=== PATIENT | male | born 1980 | race African-American/Black ===

== ENCOUNTER 2025-01-08 14:16 | Emergency (ER) | payer OTHER, SELFPAY ==
[~2025-01-08] VITALS: Ht 170.2 cm; Wt 66.9 kg
[2025-01-08] MEDS ORDERED: TRAZ-228 PO (15:31)
--- NOTE | 2025-01-08 15:32 | ED.PDOC ---
HPI (NEURO) HPI Comments 44-year-old male who presents to ED chief complaint of insomnia. Patient speaks Mandarin Lithuanian and use of an aerial photograph interpreter with the ID #[id number] was used for translation help of the voice certified massage therapist system. Patient states that he has been having insomnia for long time patient states that he has been taking multiple sleeping pills but states they have not been helping. Patient presented three sleeping pills with Lithuanian lettering unable to be identified at during visit. Patient states that he has been getting less sleep with 6 to 7 hours daily. Patient otherwise denies any associated symptoms. Patient otherwise has stable vitals in the ED the patient denies any other symptoms at this time. Chief Complaint: General Weakness Time Seen by MD: 14:53 Reviewed Notes: Nurses Notes, Medications Information Source: Patient Mode of Arrival: Ambulatory Past Medical History PAST MEDICAL HISTORY: Denies Surgical History: Denies all surgeries Family History Family History: Reviewed,noncontributory to illness Social History Smoker: Non-Smoker Alcohol: Denies ETOH Use Drugs: Denies Drug Use Lives In: Home All Other Systems: Reviewed and Negative (See HPI) Physical Exam General Appearance: No Apparent Distress, Normal HEENT: Normal ENT Inspection, Pharynx Normal, TMs Normal Neck: Full Range of Motion, Non-Tender, Normal, Normal Inspection Respiratory: Chest Non-Tender, Lungs Clear, No Accessory Muscle Use, No Respiratory Distress, Normal Breath Sounds Cardiovascular: No Edema, No JVD, No Murmur, No Gallop, Normal Peripheral Pulses, Regular Rate/Rhythm Breast Exam: Deferred Gastrointestinal: No Organomegaly, Non Tender, No Pulsatile Mass, Normal Bowel Sounds, Soft Genitalia: Deferred Pelvic: Deferred Rectal: Deferred Extremities: No calf tenderness, Normal capillary refill, Normal inspection, Normal range of motion, Non-tender, No pedal edema Musculoskeletal : Apperance: Normal Neurologic: Alert, cutter machine II-XII nml as Tested, No Motor Deficits, Normal Affect, Normal Mood, No Sensory Deficits Cerebellar Function: Normal Reflexes: Normal Skin: Dry, Normal Color, Warm Lymphatic: No Adenopathy Was a procedure done? Was a procedure done?: No Differential Diagnosis (SZ) General Weakness: Anemia, Dehydration, Electrolyte imbalance, Other (Insomnia) X-Ray, Labs, Meds, VS Vital Signs Date Time Temp Pulse Resp B/P (MAP) Pulse Ox O2 Delivery O2 Flow Rate FiO2 01/08/25 14:20 97.7 78 13 114/71 96 97.7 X-Ray, Labs, Meds, VS Comment 44-year-old male who presents to ED chief complaint of insomnia. Patient arrives alert and oriented, ABC's intact, afebrile, vital signs stable, saturating well in room air Labs in the ED showed (pertinent+ and then pertinent-) Patient was given:_. Tolerated medications with no adverse reaction. Additional MDM Review of External, Non-ED records: External records reviewed. Discussion with independent historian (EMS, family) history obtained from the patient/parents (if applicable) at bedside Chronic conditions affecting care: None Social determinants of health affecting care: None Consideration of admission (observation or admission): I considered escalation of care to admission for this patient, however given the reassuring workup, the patient is safe for outpatient management. Discussion with the Radiology: No Tests considered but not performed: Prescription medication considered but not given: 12 lead EKG interpretation: Patient Education/Counseling: Diagnosis, Treatment Family Education/Counseling: No Family Present Departure 1 Departure Time of Disposition: 15:32 Impression: Primary Impression: Insomnia Qualified Codes: G47.00 - Insomnia, unspecified Disposition: HOME / SELF CARE / HOMELESS Condition: Stable e-Prescriptions Trazodone Hcl (Trazodone Hcl) 100 Mg Tab 1 TAB PO QPM for 30 Days, #30 TAB 0 Refills Prov: JOSEFINA ANDRADE NP 01/08/25 Discharged With: Self Critical Care Note Critical Care Time?: No Stability Stability form required: No Heart Score Heart Score: Heart Score Response (Comments) Value History N/A 0 EKG N/A 0 Age N/A 0 Risk Factors N/A 0 Troponin N/A 0 Total 0 I personally scribed for JOSEFINA ANDRADE NP (KAY) on 01/08/25 at 15:43. Electronically submitted by Haley Barton ([employer] I personally scribed for JOSEFINA ANDRADE NP (KAY) on 01/08/25 at 15:55. Electronically submitted by Haley Barton ([employer]). JOSEFINA ANDRADE NP Jan 08, 2025 15:32
[2025-01-08 15:58] VITALS: BP 118/74; PULSE 72; RESP 16; TEMP 97.9; O2SAT 96
== END 2025-01-08 16:00 | disposition home or self-care (01) ==
LOC: ER 14:16
DX: G47.00 Insomnia, unspecified (principal); Z79.899 Other long term (current) drug therapy

== ENCOUNTER 2025-03-19 11:39 | Emergency (ER) | payer SELFPAY ==
[~2025-03-19] VITALS: Ht 165.1 cm; Wt 63.8 kg
[~2025-03-19 11:39] MED LIST: TRAZ-228 PO
[2025-03-19 13:00] VITALS: BP 120/86; PULSE 88; RESP 20; TEMP 97.9; O2SAT 97
--- NOTE | 2025-03-19 13:05 | ED.PDOC ---
Psychiatric HPI Comments Pleasant 44-year-old male presents for medication refill. No other complaint or concern Chief Complaint: Mental Health Time Seen by MD: 11:52 Mode of Arrival: Ambulatory Past Medical History PAST MEDICAL HISTORY: Denies Surgical History: Denies all surgeries Family History Family History: Reviewed,noncontributory to illness Social History Smoker: Non-Smoker Alcohol: Denies ETOH Use Drugs: Denies Drug Use Lives In: Home Physical Exam General Appearance: No Apparent Distress, Normal HEENT: Normal ENT Inspection, Pharynx Normal, TMs Normal Neck: Full Range of Motion, Non-Tender, Normal, Normal Inspection Respiratory: Chest Non-Tender, Lungs Clear, No Accessory Muscle Use, No Respiratory Distress, Normal Breath Sounds Cardiovascular: No Edema, No JVD, No Murmur, No Gallop, Normal Peripheral Pulses, Regular Rate/Rhythm Breast Exam: Deferred Gastrointestinal: No Organomegaly, Non Tender, No Pulsatile Mass, Normal Bowel Sounds, Soft Genitalia: Deferred Pelvic: Deferred Rectal: Deferred Extremities: No calf tenderness, Normal capillary refill, Normal inspection, Normal range of motion, Non-tender, No pedal edema Musculoskeletal : Apperance: Normal Neurologic: Alert, retail store associate II-XII nml as Tested, No Motor Deficits, Normal Affect, Normal Mood, No Sensory Deficits Cerebellar Function: Normal Reflexes: Normal Skin: Dry, Normal Color, Warm Lymphatic: No Adenopathy Was a procedure done? Was a procedure done?: No Psych Differential Dx Psych. Differential Dx: Other X-Ray, Labs, Meds, VS Vital Signs Date Time Temp Pulse Resp B/P (MAP) Pulse Ox O2 Delivery O2 Flow Rate FiO2 03/19/25 13:00 97.9 88 20 120/86 (97) 97 97.9 03/19/25 13:00 88 20 97 Room Air 03/19/25 11:40 97.8 82 20 18/124 98 97.8 X-Ray, Labs, Meds, VS Comment presents with recent onset of difficulty sleeping Well-appearing initially hypertensive repeat within normal limits, no signs of distress nontoxic Does not appear to have acute manic episode. History not suggestive of obstructive sleep apnea. Does not use stimulants. To the best of my knowledge no emergent or life threatening cause exists as the source of their symptoms Discussed sleep hygiene, melatonin as needed, will give short-term prescription for Ambien. Follow-up with PCP in 1 week and consider referral to sleep clinic if symptoms persist. Knows to return for worsening symptoms, fever, chills, headache, SI, HI, chest pain, sob or any other concerns Time of 1ST Reevaluation: 13:00 Reevaluation 1ST: Improved Patient Education/Counseling: Diagnosis, Treatment Family Education/Counseling: Diagnosis, Treatment Departure 1 Departure Time of Disposition: 13:04 Impression: Primary Impression: Insomnia Qualified Codes: G47.00 - Insomnia, unspecified Disposition: HOME / SELF CARE / HOMELESS Condition: Fair Additional Instructions: Discharge Note: Continue on your medications. Do not drive when taking narcotics. Drink plenty of fluids. Follow up with your primary Dr. Take your prescriptions as ordered. If your condition becomes worse call and follow up with your primary Dr. for instructions or return to the ER if needed. Thank you for visiting [facility]. e-Prescriptions Trazodone Hcl (Trazodone Hcl) 100 Mg Tab 1 TAB PO QPM for 30 Days, #30 TAB 0 Refills Prov: JOSEFINA ANDRADE NP 03/19/25 Critical Care Note Critical Care Time?: No Stability Stability form required: No Heart Score Heart Score: Heart Score Response (Comments) Value History N/A 0 EKG N/A 0 Age N/A 0 Risk Factors N/A 0 Troponin N/A 0 Total 0 JOSEFINA ANDRADE NP Mar 19, 2025 13:05
--- NOTE | 2025-03-19 13:08 | ED.PDOC ---
History of Present Illness HPI Comments 44-year-old male that presents to the ED here complaint of mental health. Patient states he has having insomnia and states he needs a stronger medication for sleep. Patient was previously prescribed medication for insomnia but states it is not helping. Patient otherwise denies any other symptoms or complaints Chief Complaint: Mental Health Time Seen by MD: 13:07 Reviewed Notes: Medications, Allergies Allergies: Coded Allergies: NO KNOWN ALLERGIES (Unverified , 01/08/25) Home Meds Active Scripts Trazodone Hcl (Trazodone Hcl) 100 Mg Tab, 1 TAB PO QPM for 30 Days, #30 TAB 0 Refills Prov:JOSEFINA ANDRADE Edwina CHIEF CLINICAL DIETITIAN 03/19/25 Information Source: Patient Mode of Arrival: Ambulatory Past Medical History PAST MEDICAL HISTORY: Denies Surgical History: Denies all surgeries Family History Family History: Reviewed,noncontributory to illness Social History Smoker: Non-Smoker Alcohol: Denies ETOH Use Drugs: Denies Drug Use Lives In: Home Constitutional: denies: chills, diaphoresis, fatigue, fever, malaise, sweats, weakness, others EENTM: denies: blurred vision, double vision, ear bleeding, ear discharge, ear drainage, ear pain, ear ringing, eye pain, eye redness, hearing loss, mouth pain, mouth swelling, nasal discharge, nose bleeding, nose congestion, nose pain, photophobia, tearing, throat pain, throat swelling, voice changes, others Respiratory: denies: cough, hemoptysis, orthopnea, SOB at rest, shortness of breath, SOB with excertion, stridor, wheezing, others Cardiovascular: denies: chest pain, dizzy spells, diaphoresis, Dyspnea on exertion, edema, irregular heart beat, left arm pain, lightheadedness, palpitations, PND, syncope, others Gastrointestinal: denies: abdomen distended, abdominal pain, blood streaked bowels, constipated, diarrhea, dysphagia, difficulty swallowing, hematemesis, melena, nausea, poor appetite, poor fluid intake, rectal bleeding, rectal pain, vomiting, others Genitourinary: denies: burning, dysuria, flank pain, frequency, hematuria, incontinence, penile discharge, penile sore, pain, testicle pain, testicle swelling, urgency, others Neurological: denies: dizziness, fainting, headache, left sided numbness, left sided weakness, numbness, paresthesia, pre-existing deficit, right sided numbness, right sided weakness, seizure, speech problems, tingling, tremors, weakness, others Musculoskeletal: denies: back pain, gout, joint pain, joint swelling, muscle pain, muscle stiffness, neck pain, others Integumetry: denies: bruises, change in color, change in hair/nails, dryness, laceration, lesions, lumps, rash, wounds, others Allergic/Immunocompromised: denies: Difficulty Healing, Frequent Infections, Hives, Itching, others Hematologic/Lymphatic: denies: anemia, blood clots, easy bleeding, easy bruising, swollen glands, others Endocrine: denies: excessive hunger, excessive sweating, excessive thirst, excessive urination, flushing, intolerance to cold, intolerance to heat, unexplained weight gain, unexplained weight loss, others Psychiatric: denies: anxiety, bipolar disorder, depression, hopeless, panic disorder, schizophrenia, sleepless, suicidal, others All Other Systems: Reviewed and Negative Physical Exam General Appearance: No Apparent Distress, Normal HEENT: Normal ENT Inspection, Pharynx Normal, TMs Normal Neck: Full Range of Motion, Non-Tender, Normal, Normal Inspection Respiratory: Chest Non-Tender, Lungs Clear, No Accessory Muscle Use, No Respiratory Distress, Normal Breath Sounds Cardiovascular: No Edema, No JVD, No Murmur, No Gallop, Normal Peripheral Pulses, Regular Rate/Rhythm Breast Exam: Deferred Gastrointestinal: No Organomegaly, Non Tender, No Pulsatile Mass, Normal Bowel Sounds, Soft Genitalia: Deferred Pelvic: Deferred Rectal: Deferred Extremities: No calf tenderness, Normal capillary refill, Normal inspection, Normal range of motion, Non-tender, No pedal edema Musculoskeletal : Apperance: Normal Neurologic: Alert, engineering illustrator II-XII nml as Tested, No Motor Deficits, Normal Affect, Normal Mood, No Sensory Deficits Cerebellar Function: Normal Reflexes: Normal Skin: Dry, Normal Color, Warm Lymphatic: No Adenopathy Was a procedure done? Was a procedure done?: No Differential Dx Considerations may include: Medication refill, insomnia, X-Ray, Labs, Meds, VS Vital Signs Date Time Temp Pulse Resp B/P (MAP) Pulse Ox O2 Delivery O2 Flow Rate FiO2 03/19/25 13:00 97.9 88 20 120/86 (97) 97 97.9 03/19/25 13:00 88 20 97 Room Air 03/19/25 11:40 97.8 82 20 18/124 98 97.8 X-Ray, Labs, Meds, VS Comment presents with recent onset of difficulty sleeping Well-appearing initially hypertensive repeat within normal limits, no signs of distress nontoxic Does not appear to have acute manic episode. History not suggestive of obstructive sleep apnea. Does not use stimulants. To the best of my knowledge no emergent or life threatening cause exists as the source of their symptoms Discussed sleep hygiene, melatonin as needed, will give short-term prescription for Ambien. Follow-up with PCP in 1 week and consider referral to sleep clinic if symptoms persist. Knows to return for worsening symptoms, fever, chills, headache, SI, HI, chest pain, sob or any other concerns Time of 1ST Reevaluation: 13:35 Reevaluation 1ST: Unchanged Patient Education/Counseling: Diagnosis, Treatment Family Education/Counseling: No Family Present SEPSIS Sepsis Screen Date sepsis recognized/suspect: Mar 19, 2025 Time Sepsis recognized/suspect: 1040 Recent Procedure: No On Antibiotic Therapy: No Respiratory Rate >20: No Heart Rate >90: No Temp<36 C (96.8 F) or >38.3 C: No SBP <90 or MAP <65 mmHG: No New Acute Mental Status Change: No Is the patient on CPAP, BIPAP,: No Vital Signs Date Time Temp Pulse Resp B/P (MAP) Pulse Ox O2 Delivery O2 Flow Rate FiO2 03/19/25 13:00 97.9 88 20 120/86 (97) 97 97.9 03/19/25 13:00 88 20 97 Room Air 03/19/25 11:40 97.8 82 20 18/124 98 97.8 Departure 1 Departure Time of Disposition: 11:45 Impression: Primary Impression: Insomnia Qualified Codes: G47.00 - Insomnia, unspecified Disposition: HOME / SELF CARE / HOMELESS Condition: Stable Additional Instructions: Discharge Note: Continue on your medications. Do not drive when taking narcotics. Drink plenty of fluids. Follow up with your primary Dr. Take your prescriptions as ordered. If your condition becomes worse call and follow up with your primary Dr. for instructions or return to the ER if needed. Thank you for visiting [facility]. e-Prescriptions Trazodone Hcl (Trazodone Hcl) 100 Mg Tab 1 TAB PO QPM for 30 Days, #30 TAB 0 Refills Prov: JOSEFINA ANDRADE NP 03/19/25 Discharged With: Self Critical Care Note Critical Care Time?: No Stability Stability form required: No Heart Score Heart Score: Heart Score Response (Comments) Value History N/A 0 EKG N/A 0 Age N/A 0 Risk Factors N/A 0 Troponin N/A 0 Total 0 I personally scribed for JOSEFINA ANDRADE NP ([email or web address]) on 03/19/25 at 13:08. Electronically submitted by Haley Barton ([email or web address]). JOSEFINA ANDRADE NP Mar 19, 2025 13:08
== END 2025-03-19 13:21 | disposition home or self-care (01) ==
LOC: ER 11:45
DX: G47.00 Insomnia, unspecified (principal)

== ENCOUNTER 2025-04-19 19:45 | Emergency (ER) | payer SELFPAY ==
[~2025-04-19] VITALS: Ht 165.1 cm; Wt 63.1 kg
--- NOTE | 2025-04-19 21:24 | ED.PDOC ---
Psychiatric HPI Comments PT PRESENTED TO ED FOR INSOMNIA X1 DAY. PT DENIED ANY OTHTER S/S. GCS-15, ALL VSS Chief Complaint: Medical Clearance Time Seen by MD: 19:52 Reviewed Notes: Nurses Notes, Medications, Allergies Information Source: Patient Mode of Arrival: Ambulatory Past Medical History PAST MEDICAL HISTORY: Denies Surgical History: Denies all surgeries Family History Family History: Reviewed,noncontributory to illness Social History Smoker: Non-Smoker Alcohol: Denies ETOH Use Drugs: Denies Drug Use Lives In: Home All Other Systems: Reviewed and Negative (see hpi) Physical Exam General Appearance: No Apparent Distress, Normal HEENT: Pharynx Normal Neck: Full Range of Motion, Non-Tender Respiratory: Lungs Clear, No Respiratory Distress, Normal Breath Sounds Cardiovascular: No Edema, No JVD, No Murmur, No Gallop, Normal Peripheral Pulses, Regular Rate/Rhythm Breast Exam: Deferred Gastrointestinal: Non Tender, Soft Genitalia: Deferred Pelvic: Deferred Rectal: Deferred Extremities: Normal range of motion Musculoskeletal : Apperance: Normal Neurologic: Alert, No Motor Deficits, Normal Affect, Normal Mood, No Sensory Deficits Cerebellar Function: Normal Reflexes: NOT DONE Skin: Dry, Normal Color, Warm Lymphatic: No Adenopathy Was a procedure done? Was a procedure done?: No Psych Differential Dx Psych. Differential Dx: Anxiety, Sleepless OD Differential Dx: Depression X-Ray, Labs, Meds, VS Vital Signs Date Time Temp Pulse Resp B/P (MAP) Pulse Ox O2 Delivery O2 Flow Rate FiO2 04/19/25 21:40 68 18 95 Room Air 04/19/25 21:40 98.8 68 18 113/61 (78) 95 98.8 04/19/25 19:47 97.1 71 16 132/77 99 97.1 X-Ray, Labs, Meds, VS Comment Basis trazodone refilled as prescribed. Advised to take medication as prescribed side effects discussed. Advised to follow up with his PCP for further refills. ER return precautions given patient indicates understanding agrees with discharge plan of care. Time of 1ST Reevaluation: 19:52 Reevaluation 1ST: Unchanged Time of 2ND Reevaluation: 21:25 Reevaluation 2ND: Improved Patient Education/Counseling: Diagnosis, Treatment, Need For Follow Up Family Education/Counseling: No Family Present Departure 1 Departure Time of Disposition: 21:25 Impression: Primary Impression: Insomnia Qualified Codes: F51.01 - Primary insomnia Disposition: HOME / SELF CARE / HOMELESS Condition: Stable e-Prescriptions Trazodone Hcl (Trazodone Hcl) 100 Mg Tab 1 TAB PO QPM for 20 Days, #20 TAB Prov: JARROD PETERS 04/19/25 Discharged With: Self Critical Care Note Critical Care Time?: No Stability Stability form required: No JARROD PETERS Apr 19, 2025 21:24
[2025-04-19] MEDS ORDERED: TRAZ-228 PO (21:27)
[2025-04-19 21:40] VITALS: BP 113/61; PULSE 68; RESP 18; TEMP 98.8; O2SAT 95
== END 2025-04-19 21:40 | disposition home or self-care (01) ==
LOC: ER 19:45
DX: G47.00 Insomnia, unspecified (principal)

== ENCOUNTER 2025-05-13 09:56 | Emergency (ER) | payer SELFPAY ==
[~2025-05-13] VITALS: Ht 165.1 cm; Wt 63.8 kg
--- NOTE | 2025-05-13 12:27 | ED.PDOC ---
Psychiatric HPI Comments The patient presents requesting a refill of trazodone for insomnia. The patient reports typically receiving a monthly supply but last time was only given a 20- day supply. The patient would prefer to receive a longer supply, such as 30 or 90 days, to avoid monthly visits to the clinic. The patient is currently taking trazodone. 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) Chief Complaint: Anxiety Time Seen by MD: 11:30 Reviewed Notes: Nurses Notes, Medications, Allergies Information Source: Patient Mode of Arrival: Ambulatory Severity: Able to Care for Self Severity of Pain: Mild Severity of Mental Status: None Severity of Symptoms: Mild Timing: Came on: Gradually Duration: Since onset Prehospital treatment: None Presents with: None Ingestion: None Circumstance: None Current substance abuse: None Stressors: None History of: None Quality: None Location: None Location of pain or injury: None Associated signs and symptoms: None Past Medical History PAST MEDICAL HISTORY: Denies Surgical History: Denies all surgeries Family History Family History: Reviewed,noncontributory to illness, Unknown Social History Smoker: Non-Smoker Alcohol: Denies ETOH Use Drugs: Denies Drug Use Lives In: Home Constitutional: reports: others (Insomnia); denies: chills, diaphoresis, fatigu e, fever, malaise, sweats, weakness EENTM: denies: blurred vision, double vision, ear bleeding, ear discharge, ear drainage, ear pain, ear ringing, eye pain, eye redness, hearing loss, mouth pain, mouth swelling, nasal discharge, nose bleeding, nose congestion, nose pain, photophobia, tearing, throat pain, throat swelling, voice changes, others Respiratory: denies: cough, hemoptysis, orthopnea, SOB at rest, shortness of breath, SOB with excertion, stridor, wheezing, others Cardiovascular: denies: chest pain, dizzy spells, diaphoresis, Dyspnea on exertion, edema, irregular heart beat, left arm pain, lightheadedness, palpitations, PND, syncope, others Gastrointestinal: denies: abdomen distended, abdominal pain, blood streaked bowels, constipated, diarrhea, dysphagia, difficulty swallowing, hematemesis, melena, nausea, poor appetite, poor fluid intake, rectal bleeding, rectal pain, vomiting, others Genitourinary: denies: burning, dysuria, flank pain, frequency, hematuria, incontinence, penile discharge, penile sore, pain, testicle pain, testicle swelling, urgency, others Neurological: denies: dizziness, fainting, headache, left sided numbness, left sided weakness, numbness, paresthesia, pre-existing deficit, right sided numbness, right sided weakness, seizure, speech problems, tingling, tremors, weakness, others Musculoskeletal: denies: back pain, gout, joint pain, joint swelling, muscle pain, muscle stiffness, neck pain, others Integumetry: denies: bruises, change in color, change in hair/nails, dryness, laceration, lesions, lumps, rash, wounds, others Allergic/Immunocompromised: denies: Difficulty Healing, Frequent Infections, Hives, Itching, others Hematologic/Lymphatic: denies: anemia, blood clots, easy bleeding, easy bruising, swollen glands, others Endocrine: denies: excessive hunger, excessive sweating, excessive thirst, excessive urination, flushing, intolerance to cold, intolerance to heat, unex plained weight gain, unexplained weight loss, others Psychiatric: denies: anxiety, bipolar disorder, depression, hopeless, panic disorder, schizophrenia, sleepless, suicidal, others All Other Systems: Reviewed and Negative Physical Exam Exam Comments Normal General Appearance: No Apparent Distress, Normal HEENT: Normal ENT Inspection, Pharynx Normal, TMs Normal Neck: Full Range of Motion, Non-Tender, Normal, Normal Inspection Respiratory: Chest Non-Tender, Lungs Clear, No Accessory Muscle Use, No Respiratory Distress, Normal Breath Sounds Cardiovascular: No Edema, No JVD, No Murmur, No Gallop, Normal Peripheral Pulses, Regular Rate/Rhythm Breast Exam: Deferred Gastrointestinal: No Organomegaly, Non Tender, No Pulsatile Mass, Normal Bowel Sounds, Soft Genitalia: Deferred Pelvic: Deferred Rectal: Deferred Extremities: No calf tenderness, Normal capillary refill, Normal inspection, Normal range of motion, Non-tender, No pedal edema Musculoskeletal : Apperance: Normal Neurologic: Alert, telecasting engineer II-XII nml as Tested, No Motor Deficits, Normal Affect, Normal Mood, No Sensory Deficits Cerebellar Function: Normal Reflexes: Normal Skin: Dry, Normal Color, Warm Lymphatic: No Adenopathy Was a procedure done? Was a procedure done?: No X-Ray, Labs, Meds, VS Vital Signs Date Time Temp Pulse Resp B/P (MAP) Pulse Ox O2 Delivery O2 Flow Rate FiO2 05/13/25 12:38 98.2 62 16 122/72 (89) 97 98.2 05/13/25 12:38 62 16 98 Room Air 05/13/25 09:58 97.0 85 15 124/75 98 97.0 X-Ray, Labs, Meds, VS Comment Patient arrives alert and oriented, ABC's intact, afebrile, vital signs stable, saturating well in room air The patient with a history of insomnia presents to the emergency department requesting a trazodone refill. The patient reports receiving only a 20-day supply previously and requests a 30- or 90-day supply to reduce clinic visits. No acute symptoms or physical findings were discussed during this encounter. The patient is requesting ongoing management of insomnia with trazodone, but is presenting to the emergency department for medication refills, which is not the appropriate setting for chronic medication management. The patient is stable at this visit, and there is no evidence of acute illness. - Provided a 30-day supply of trazodone. - Advised that future refills should be managed by the primary care provider and not through the emergency department. Follow-up/Disposition: Instructed the patient to follow up with their primary care provider for ongoing management and future medication refills. Additional MDM Review of External, Non-ED records: External records reviewed. Discussion with independent historian (EMS, family) history obtained from the patient/parents (if applicable) at bedside Chronic conditions affecting care: None Social determinants of health affecting care: None Consideration of admission (observation or admission): I considered escalation of care to admission for this patient, however given the reassuring workup, the patient is safe for outpatient management. Discussion with the Radiology: No Tests considered but not performed: Prescription medication considered but not given: 12 lead EKG interpretation: Time of 1ST Reevaluation: 12:00 Reevaluation 1ST: Unchanged Patient Education/Counseling: Diagnosis, Treatment, Prognosis Family Education/Counseling: No Family Present Departure 1 Departure Time of Disposition: 12:26 Impression: Primary Impression: Insomnia Qualified Codes: G47.00 - Insomnia, unspecified Disposition: 01 HOME / SELF CARE / HOMELESS Condition: Stable Additional Instructions: Discharge Note: Continue on your medications. Do not drive when taking narcotics. Drink plenty of fluids. Follow up with your primary Dr. Take your prescriptions as ordered. If your condition becomes worse call and follow up with your primary DrSalvatore for instructions or return to the ER if needed. Thank you for visiting [facility]. e-Prescriptions Trazodone Hcl (Trazodone Hcl) 100 Mg Tab 1 TAB PO QPM for 30 Days, #30 TAB 0 Refills Prov: JOSEFINA ANDRADE NP 05/13/25 Critical Care Note Critical Care Time?: No Stability Stability form required: No I personally scribed for JOSEFINA ANDRADE NP ([email or web address]) on 05/13/25 at 12:39. Electronically submitted by Gerry Iqbal ([email or web address]). JOSEFINA ANDRADE NP May 13, 2025 12:27
[2025-05-13 12:38] VITALS: BP 122/72; PULSE 62; RESP 16; TEMP 98.2; O2SAT 98
== END 2025-05-13 12:39 | disposition home or self-care (01) ==
LOC: ER 09:56
DX: G47.00 Insomnia, unspecified (principal); Z76.0 Encounter for issue of repeat prescription